=== PATIENT | male | born 1955 | race Caucasian/White ===

== ENCOUNTER → 2016-05-20 | Outpatient (CLI) | payer BC ==
[~2016-05-20] MED LIST: ASPIR-TRIN325 M1 PO; CLONAZEPAM0.5 MG PO; LEXAPRO10 MG PO; LITHATE20 MG PO; MULTI-VITAMIN1 EAC1 PO; NAPROXEN250 MG PO
== END | disposition home or self-care (01) ==
LOC: CDC 09:34
DX: Z01.810 Encounter for preprocedural cardiovascular examination (principal); I45.9 Conduction disorder, unspecified; S83.232A Complex tear of medial meniscus, current injury, left knee, initial encounter; S83.272A Complex tear of lateral meniscus, current injury, left knee, initial encounter; M25.562 Pain in left knee; Z88.0 Allergy status to penicillin
CPT/HCPCS: 93000